=== PATIENT | female | born 1965 | race Caucasian/White ===

== ENCOUNTER → 2018-07-11 | Outpatient (CLI) | payer BC ==
--- NOTE | 2018-07-15 15:44 | MAM ---
EXAM DESCRIPTION: 3D Screening BILATERAL : Digital Mammography. CLINICAL HISTORY: 52 years Female ANNUAL SCREENING . No complaints. "Dense breasts." No personal or family history of breast cancer. Childbirth. Postmenopausal 17 years. Currently on HRT. Lifetime risk of developing breast cancer (Tyrer-Cuzick model)(%): 9.7. COMPARISON: Baseline study at this facility. TECHNIQUE: Bilateral CC and MLO projection full-field images, digital tomosynthesis mammographic technique. Bilateral digital 2-D full-field MLO images. CAD not available for tomosynthesis or 2-D images. FINDINGS: The breast parenchymal density pattern is: Heterogeneously dense breast tissue, which may obscure small masses. No skin thickening or nipple retraction. Bilateral axillary lymph nodes. Focal asymmetry versus architectural distortion in the middle third of the right breast at the 9:30 clock position, 8 cm from the nipple. Not associated with microcalcifications. This sector of the breast is asymmetrically denser than the contralateral left breast. No new focal, stellate mass or density, focal asymmetry , and no suspicious microcalcifications left breast. IMPRESSION: BI-RADS CATEGORY: 0 - INCOMPLETE- Need additional imaging evaluation. FOLLOW-UP: Recall for additional imagin-D spot compression images of the region of interest right breast CC projection. Orthogonal full-field LM tomosynthesis right breast. Targeted right breast ultrasound region of interest.. Written communication concerning the IMPRESSION and Follow-up, will be mailed to the patient and referring health care provider. Electronically signed by: Chris Harrington MD 07/15/2018 3:42 PM CDT
== END ==
LOC: MAMMO 09:42
PROVIDERS: ATTEND Family Medicine
DX: Z12.31 Encounter for screening mammogram for malignant neoplasm of breast (principal)

== ENCOUNTER → 2018-08-13 | Outpatient (CLI) | payer BC ==
--- NOTE | 2018-08-14 11:30 | MAM ---
EXAM DESCRIPTION: 3D Diagnostic, Right: Digital Mammography CLINICAL HISTORY: 53 yearsFemaleABN MAMMO focal asymmetry upper outer quadrant middle third right breast.. COMPARISON: Bilateral screening digital breast tomosynthesis 07/11/2018. TECHNIQUE: Right breast LM projection full-field images, digital mammographic tomosynthesis technique. Right breast digital spot compression of the region of interest in the CC and LM projections. CAD not utilized. FINDINGS: The breast parenchymal density pattern is: Heterogeneously dense breast tissue, which may obscure small masses. No skin thickening or nipple retraction focal asymmetry decreases in density with no mass density on tomosynthesis and spot compression images. No suspicious microcalcifications right breast. IMPRESSION: Probably benign findings. BI-RADS CATEGORY: 3 - PROBABLY BENIGN. MANAGEMENT: Short interval (6-month) diagnostic digital mammography right breast on or after December 2018. Optional targeted right breast ultrasound.. Written communication explaining the IMPRESSION and FOLLOW-UP will be mailed to the patient and referring care provider Electronically signed by: Chris Harrington MD 08/14/2018 11:28 AM CDT
== END ==
LOC: MAMMO 08:06
PROVIDERS: ATTEND Family Medicine
DX: R92.8 Other abnormal and inconclusive findings on diagnostic imaging of breast (principal)
CPT/HCPCS: 77065; G0279

== ENCOUNTER → 2018-10-17 | Outpatient (CLI) | payer BC | LOC: GMATM 17:32 | PROVIDERS: ATTEND Nurse Practitioner Family | DX: E53.9 Vitamin B deficiency, unspecified (principal) ==

== ENCOUNTER 2018-12-21 19:20 | Observation (INO) | payer BC ==
[2018-12-21] MEDS ORDERED: ONDANSETRON INJ 4 MG/2 ML VIAL IV ONE (19:45)
[2018-12-21] MEDS ORDERED: SODIUM CHLORIDE 0.9% 1000ML 1,000 ML IVS ONE (19:45)
[2018-12-21] MEDS ORDERED: MORPHINE SULFATE INJ 10 MG/ML VIAL IV ONE ×2 (19:45→21:35)
--- NOTE | 2018-12-21 20:33 | RAD ---
EXAM DESCRIPTION: Chest,1 View CLINICAL HISTORY: 53 years Female chest pain, shortness of breath COMPARISON: None. FINDINGS: The cardiomediastinal silhouette appears unremarkable. No consolidating infiltrates or pleural effusions. No pneumothorax. Cholecystectomy clips in the right upper quadrant. IMPRESSION: No acute abnormality is identified. Electronically signed by: Parth Smith MD 12/21/2018 8:31 PM CDT
--- NOTE | 2018-12-21 23:55 | HP ---
SUPERVISING PHYSICIAN: Jacobo Lara M.D. CHIEF COMPLAINT: Abdominal pain and nausea. HISTORY OF PRESENT ILLNESS: Ms. Rizvi is a 53 year-old female patient that initially came to the [facility] complaining of chest pains with a reported history of vomiting and diarrhea over the last several days and unable to tolerate any oral intake. She noted that she was having pain in the base of her neck, shoulders and arms associated with shortness of breath. She also noted that she was having some diffuse abdominal pain and nausea. She has been afebrile. She also has a history of coronary artery disease. Initial laboratory studies in the [facility] showed she had a white count of 10,500 with an early left shift. Chemistries showed a mild hyponatremia with sodium 129, BUN 9, creatinine 0.76. Liver functions were all within normal limits. Lipase normal at 32. She had 2 sets of troponins that were less than 0.02. Urinalysis did show positive nitrites with a small amount of leukocyte esterase, 10 to 20 WBCs and 4+ bacteria. CT of the abdomen without contrast showed suspected enteritis versus early chronic inflammatory bowel disease involving the jejunum and much of the ileum. There terminal ileum and colon were reported normal per radiology interpretation. The patient was started on some fluids and Rocephin for urinary tract infection. She is now going to be placed in observation for further treatment of likely viral enteritis with unable to maintain oral hydration and underlying urinary tract infection. She was admitted in stable condition. PAST MEDICAL HISTORY: 1. Seasonal allergies. 2. Hypertension. PAST SURGICAL HISTORY: 1. Cholecystectomy. 2. Appendectomy. 3. Total hysterectomy. HOME MEDICATIONS: 1. Xyzal 5 mg daily. 2. Spironolactone 25 mg daily. 3. Prinivil 10 mg daily. 4. Cetirizine 10 mg daily. 5. Azelastine nasal spray daily. ALLERGIES: NO KNOWN DRUG ALLERGIES. FAMILY HISTORY: Mother and father are both alive. Mother has a history of hypertension. Father has a history of gout, hypertension and diabetes. She has 1 sister who has hypertension. SOCIAL HISTORY: The patient lives in [place]. 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 She is . Rarely drinks alcohol and has never smoked tobacco. She denies using illicit drugs. REVIEW OF SYSTEMS: CONSTITUTIONAL: Positive for malaise and generalized weakness. No reported fevers. HEENT: Denies any headaches, ear aches, sore throat. Does have some slight nasal congestion from seasonal allergies. Denies any headaches or vision changes. RESPIRATORY: Positive for shortness of breath. Denies any coughing or wheezing. CARDIOVASCULAR: Denies any chest pains, palpitations or syncopal episodes. GASTROINTESTINAL: Positive for abdominal pains and some associated diarrhea, nausea and vomiting. GENITOURINARY: Denies any dysuria, hematuria or polyuria. MUSCULOSKELETAL: Generalized muscle pain with some neck pain but no meningeal signs. SKIN: Denies any lesions, rashes or moles or unexplained changes. NEUROLOGIC: Denies any headaches, numbness, tingling, seizures or ataxia. HEMATOLOGIC: Denies any easy bruising or unexplained bleeding or any transfusion reactions. PHYSICAL EXAMINATION: VITAL SIGNS: On admission to the . , shows temperature 97.9 with pulse 102, blood pressure initially showing to be hypertensive at 173/115, satting 99% on room air. Upon admission to the Medical/Surgical floor after pain management the patient was showing a blood pressure of 83/52, heart rate 70. Admission weight 70.6 kg. GENERAL: The patient appears to be in no acute distress. She does appear unwell generally but is alert. HEENT: Tympanic membranes are clear bilaterally. Oropharynx is pink with dry mucosal membranes. No lesions. NECK: Full range of motion with tenderness noted on the lateral extension. No meningeal signs. No jugular venous distention. CHEST: Lungs are clear to auscultation bilaterally without any notable rhonchi, wheezing or rales. There was some tenderness noted over the anterior chest wall with palpation. CARDIOVASCULAR: Heart was regular rate and rhythm without appreciable murmurs, gallops, or rubs. ABDOMEN: Soft with some generalized tenderness more so in the left and right upper quadrants. No rebound tenderness. No guarding. No point tenderness. No peritoneal signs. Bowel sounds were active. BACK: Without any CVA tenderness or vertebral tenderness. EXTREMITIES: No clubbing, cyanosis or edema. She moves all extremities ad marichuy. NEUROLOGIC: Cranial nerves II-XII are grossly intact. Facial features were symmetrical. Extraocular movements are within normal limits. There is no notable nystagmus. She was alert and oriented times three. LABORATORY: CBC showed a normal white count at 10,500, hemoglobin 13.1, hematocrit 38.8. Differential showed a slight left shift. Chemistries showed a low sodium at 129, potassium was normal at 3.6, anion gap normal at 15, carbon dioxide 22, BUN 9, creatinine 0.76. Blood sugar was 161, calcium 8.9. Liver functions were all within normal limits. She had 2 sets of troponins that were less than 0.02. Lipase was normal at 32. Urinalysis showed trace of blood with positive nitrites, small amount of leukocyte esterase, 0 RBCs, 10 to 20 WBCs with 4+ bacteria and 0 to 1 epithelials. Drug screen showed positive for opiates but the patient had received morphine in the [facility] prior to sample collection. MICROBIOLOGY: Blood cultures are pending. Urine culture is pending. EKG showed no evidence of ischemia with no ST or T wave changes and sinus rhythm. RADIOLOGY: Abdominal/pelvis CT per radiology interpretation showed suspected enteritis versus early chronic inflammatory bowel disease involving the jejunum and much of the ileum with the terminal ileum appearing normal and the colon appearing grossly normal with nonoral contrast. ASSESSMENT: 1. Acute abdominal pain with findings on CT suggestive of enteritis, likely viral of the jejunum and ileum. 2. Moderate dehydration secondary to #1 from nausea and vomiting and unable to have adequate oral intake. 3. Chest wall pain probably musculoskeletal with all EKGs and troponins being negative with the patient having multiple episodes of severe vomiting. 4. Electrolytes imbalance to include hyponatremia secondary to persistent nausea and vomiting. 5. Hypertension urgency on admission but now showing to be controlled after pain management. 6. Urinary tract infection with cultures pending. 7. Seasonal allergies. PLAN: Ms. Riziv is going to be placed in observation for initiation of parenteral hydration therapy as she is unable to hold adequate oral therapy in and is showing to be dehydrated. She will be given pain management with Toradol and qc manager her nausea with Zofran and Phenergan as needed. I started her on antibiotics to include Rocephin. Will await culture results to target antibiotic therapy as appropriate. I will make her NPO with the intention of starting on clear liquids in the morning and advance as she can tolerate. She will be on DVT prophylaxis per protocol with Lovenox. Anticipate her length of stay to be 1 to 2 days. As soon as she is able to tolerate oral intake, certainly can transition to outpatient management. Until we can transition back to outpatient management will continue to monitor and treat as needed. [facility][id number] [facility]
--- NOTE | 2018-12-21 23:56 | ED.PDOC ---
History of Present Illness - General Chief Complaint: Abdominal Pain Stated Complaint: abd pain, nausea Time Seen by Provider: 12/21/18 19:43 Information Source: patient, family Exam Limitations: no limitations - History of Present Illness Initial Comments: Patient presents to the ED complaining of chest pain. She reports recent history of vomiting and diarrhea which improved yesterday although she is unable to tolerate much PO today. She complains of pain at the base of her neck, shoulders and arms associated with shortness of breath. She continues to have diffuse abdominal pain and nausea. She has been afebrile. No diaphoresis. No known history of CAD. No other complaints at this time. Abdominal Pain Onset Location: generalized abdomen Pain Radiation: no radiation Quality: severe, aching, cramping Timing/Duration: days Improving Factors: nothing Worsening Factors: eating, movement Associated Symptoms: chest pain, diarrhea, fatigue, nausea/vomiting, shortness of breath Review of Systems - Review of Systems Constitutional: States: malaise, weakness EENTM: States: no symptoms reported Respiratory: States: short of breath. Denies: cough Cardiology: Denies: chest pain, palpitations Gastrointestinal/Abdominal: States: abdominal pain, diarrhea, nausea, vomiting Genitourinary: States: no symptoms reported Musculoskeletal: States: muscle pain, neck pain Skin: States: no symptoms reported. Denies: lesions, rash Neurological: Denies: headache, numbness, tingling Endocrine: States: no symptoms reported Hematologic/Lymphatic: States: no symptoms reported All other Systems: Reviewed and Negative Past Medical History (General) - Patient Medical History Hx Asthma: No Hx Cardiac Disorders: No Hx Hypertension: Yes Hx Diabetes: No Surgical History: appendectomy, cholecystectomy, Hysterectomy - Vaccination History Hx Tetanus, Diphtheria Vaccination: No Hx Influenza Vaccination: No Hx Pneumococcal Vaccination: No - Social History Hx Tobacco Use: No Hx Alcohol Use: Yes Family Medical History - Family History Mother Family History: Unknown Physical Exam - Physical Exam General Appearance: Anxious, Ill Appearing, Restless Eyes, Ears, Nose, Throat Exam: other - dry mucous membranes Neck: full range of motion, tender lateral Respiratory: lungs clear, normal breath sounds, no respiratory distress, other - tenderness to palpation over the anterior chest Cardiovascular/Chest: normal peripheral pulses, regular rate, rhythm, no murmur Peripheral Pulses: No deficit Gastrointestinal/Abdominal: normal bowel sounds, tenderness - generalized Back Exam: no CVA tenderness Extremity: normal range of motion, non-tender, normal inspection, slow capillary refill Neurologic: seam checker II-XII nml as tested, no motor/sensory deficits, alert, oriented x 3 Skin Exam: normal color Progress - Progress Progress: 12/22/18 00:02 Discussed with HARNESS MAKER who accepts for observation admit. MDM: Patient presents to the ED complaining of chest pain, nausea/vomiting, abdominal pain. Workup as below. The EKG does not show acute ischemia and troponin is negative x 2. Labs as above. Abdominal exam shows diffuse tenderness without focal findings concerning for acute abdomen. She does not have clinical signs of obstruction. She is s/p hysterectomy, appendectomy and cholecystectomy. She is dehydrated and unable to tolerate PO secondary to pain and nausea. Will place in observation for symptom control, continued hydration. 12/22/18 00:08 - Results/Orders Results/Orders: Laboratory Results - last 24 hr 12/21/18 12/21/18 12/21/18 19:45 19:45 20:00 WBC 10.5 RBC 4.62 Hgb 13.5 Hct 38.8 MCV 84.0 MCH 29.2 MCHC 34.8 RDW 12.8 Plt Count 264 MPV 8.5 Absolute Neuts (auto) 8.70 H Absolute Lymphs (auto) 1.00 Absolute Monos (auto) 0.70 Absolute Eos (auto) 0.00 Absolute Basos (auto) 0.00 Neutrophils % 83.1 H Lymphocytes % 9.7 L Monocytes % 6.8 Eosinophils % 0.2 L Basophils % 0.2 Sodium 129 L Potassium 3.6 Chloride 95 L Carbon Dioxide 22 Anion Gap 15.6 BUN 9 Creatinine 0.76 BUN/Creatinine Ratio 11.8 Random Glucose 161 H Serum Osmolality 261.1 L Calcium 8.9 Total Bilirubin 0.5 AST 32 ALT 42 Alkaline Phosphatase 70 Troponin I < 0.02 Serum Total Protein 7.7 Albumin 4.0 Globulin 3.7 H Albumin/Globulin Ratio 1.1 Lipase 32 12/21/18 22:22 WBC RBC Hgb Hct MCV MCH MCHC RDW Plt Count MPV Absolute Neuts (auto) Absolute Lymphs (auto) Absolute Monos (auto) Absolute Eos (auto) Absolute Basos (auto) Neutrophils % Lymphocytes % Monocytes % Eosinophils % Basophils % Sodium Potassium Chloride Carbon Dioxide Anion Gap BUN Creatinine BUN/Creatinine Ratio Random Glucose Serum Osmolality Calcium Total Bilirubin AST ALT Alkaline Phosphatase Troponin I < 0.02 Serum Total Protein Albumin Globulin Albumin/Globulin Ratio Lipase - EKG/XRAY/CT Comments: 2138 normal sinus rhythm rate 90 normal axis, normal interval no stemi XRAY: chest - no acute disease, no free air Departure - Departure Clinical Impression: Dehydration, Nausea and vomiting Chest pain Qualifiers: Chest pain type: unspecified Qualified Code(s): R07.9 - Chest pain, unspecified Time of Disposition: 00:05 Disposition: Admit Patient Condition: Fair Home Medications: Ambulatory Orders Azelastine HCl [Azelastine Hydrochloride] 1 spray VIRGIE DAILY 12/21/18 Cetirizine HCl [Zyrtec Allergy] 10 mg PO DAILY 12/21/18 Lisinopril [Prinivil] 10 mg PO DAILY 12/21/18 Spironolactone 25 mg PO DAILY 12/21/18
[2018-12-22] MEDS ORDERED: ACETAMINOPHEN SUPPOSITORY 650 MG PR PRN (00:37)
[2018-12-22] MEDS ORDERED: ONDANSETRON INJ 4 MG/2 ML VIAL IV PRN (00:37)
[2018-12-22] MEDS ORDERED: tiZANidine 4 MG TAB PO ONE (00:40)
[2018-12-22] MEDS ORDERED: PANTOPRAZOLE SODIUM IV 40 MG VIAL IV ONE (00:40)
[2018-12-22] MEDS ORDERED: KETOROLAC TROMETHAMINE INJ 30 MG/ML VIAL IV ONE (00:41)
[2018-12-22] MEDS: KCL 20MEQ/D5NS 1,000 ML IVS PRN ×3 (00:58→16:23)
[2018-12-22] MEDS ORDERED: IV SET AND CAP CHANGE INJ INJ SCH (01:00)
[2018-12-22] MEDS: SODIUM CHLORIDE 0.9% (FLUSH) 10 ML SYG IV PRN ×2 (01:03→21:00)
[2018-12-22] MEDS ORDERED: SODIUM CHL 0.9% 50ML MIN-BAG+ 50 ML IVPB ONE ×2 (02:29→20:05)
[2018-12-22] MEDS ORDERED: cefTRIAXone SODIUM 1 GM VIAL ONE ×2 (02:30→20:05)
[2018-12-22] MEDS: cefTRIAXone SODIUM 1 GM in SODIUM CHL 0.9% 50ML MIN-BAG+ 50 ML IVPB SCH (02:31)
--- NOTE | 2018-12-22 02:54 | CT ---
EXAMINATION: POSTCONTRAST ABDOMEN AND PELVIC CT EXAMINATION. REFERRAL DIAGNOSIS: Diffuse abdominal pain. COMPARISONS: No comparison abdomen and pelvic CT examinations are currently available. PROCEDURE: Using low-dose helical technique, thin section axial images were performed through the abdomen and pelvis after the uncomplicated intravenous administration of nonionic iodinated contrast material. No comparisons are available. FINDINGS: Multiple loops of fluid filled nondistended small bowel without inflammatory wall thickening or adjacent abscess. No mechanical bowel obstruction or extraluminal bowel gas. The colon appears normal. No evidence of appendicitis or diverticulitis. Scattered mesenteric noncalcified lymph nodes measuring up to 11 mm in greatest diameter. Remote cholecystectomy. The liver, spleen, pancreas, adrenal glands, kidneys, renal collecting systems, ureters and fluid-filled gallbladder appear normal. 1.8 cm noncalcified hypodense left uterine mass lesion with multiple satellite 5 mm hypodense nodule. Transvaginal pelvic ultrasound versus pelvic MRI should be performed for further evaluation. Moderate to severe atherosclerotic calcification in the abdominal aorta without aneurysm or dissection. Greatest AP diameter of the infrarenal abdominal aorta measures 1.8 cm. No imaging follow-up recommended. Left basilar scar versus atelectasis. IMPRESSION: 1. Suspect enteritis versus early chronic inflammatory bowel disease involving the jejunum and much of the ileum. The terminal ileum appears normal. 2. The colon appears grossly normal on this nonoral contrast examination. 3. No appendicitis or diverticulitis. 4. 2 noncalcified left hypodense uterine lesions measuring 18 mm 5 mm in greatest transverse dimension. Transvaginal pelvic ultrasound versus pelvic MRI would prove useful to differentiate myometrial from endometrial lesions. 5. Atherosclerotic calcification in the abdominal aorta without aneurysm or dissection. No imaging follow-up recommended. This exam was performed according to our departmental dose-optimization program, which includes automated exposure control, adjustment of the mA and/or kV according to patient size and/or use of iterative reconstruction technique. For management of fusiform aneurysmal abdominal aortas: <2.6 cm aorta, no follow-up is recommended. 2.6-2.9 cm aorta, recommend follow-up every 5 years for aortas meeting the criteria for AAA (>1.5 x proximal normal segment; no f/u if < 1.5 x proximal normal segment; no f/u for aortas < 2.6 cm). 3.0-3.4 cm AAA, recommend follow-up every 3 years. 3.5-3.9 cm AAA, recommend follow-up every 2 years. 4.0-4.4 cm AAA, recommend follow-up every 12 months and recommend vascular consultation. 4.5-5.4 cm AAA, recommend follow-up every 6 months and recommend vascular consultation. >5.5 cm AAA, recommend referral to vascular specialist. For management of saccular abdominal aortic aneurysms of any size, recommend vascular consultation. Note: for AAA enlargement of >0.5 cm in 6 months or >1 cm in 1 year, recommend vascular consultation. References: J Am Freddy Radiol 2013; 10(10):789-794; J Vasc Surg. 2018; 67:2-77 Electronically signed by: Talat Marsh MD 12/22/2018 2:52 AM CDT
[2018-12-22] MEDS: AZELASTINE BNAS SCH (09:21)
[2018-12-22] MEDS: LISINOPRIL 10 MG TAB PO SCH (09:22)
[2018-12-22] MEDS ORDERED: KETOROLAC TROMETHAMINE INJ 60 MG/2 ML VIAL IM ONE (11:15)
[2018-12-22] MEDS ORDERED: KETOROLAC TROMETHAMINE INJ 60 MG/2 ML VIAL IM PRN (17:50)
[2018-12-23] MEDS: cefTRIAXone SODIUM 1 GM in SODIUM CHL 0.9% 50ML MIN-BAG+ 50 ML IVPB SCH (01:33)
[2018-12-23] MEDS: ACETAMINOPHEN 325 MG TAB PO PRN ×2 (01:43→10:46)
[2018-12-23 04:17] VITALS: O2SAT 97
[2018-12-23] MEDS: LISINOPRIL 10 MG TAB PO SCH (08:58)
[2018-12-23] MEDS: AZELASTINE BNAS SCH (08:58)
[2018-12-23] MEDS ORDERED: ENOXAPARIN SODIUM 40 MG/0.4 ML SYG SUBCU SCH (09:00)
[2018-12-23] MEDS ORDERED: INFLUENZA VIRUS VACC (ADULT) 0.5 ML SYG IM ONE (11:35)
[2018-12-23 12:04] VITALS: BP 133/72; TEMP 97.9
--- NOTE | 2018-12-23 13:31 | DS ---
SUPERVISING PHYSICIAN: Zeb Marshall MD ADMISSION DIAGNOSIS: 1. Acute abdominal pain with findings on CT suggestive of enteritis, likely viral. 2. Moderate dehydration secondary to #1 along with nausea and vomiting. 3. Chest wall pain with negative EKGs and troponins, likely secondary to multiple episodes of severe vomiting. 4. Electrolyte imbalance secondary to include enteritis. 5. Hypertensive urgency. 6. Urinary tract infection. 7. Seasonal allergies. DISCHARGE DIAGNOSIS: 1. Enteritis with abdominal improved, improved. 2. Dehydration, improved. 3. Chest wall pain, resolved. 4. Electrolyte imbalance, improved. 5. Hypertensive urgency, resolved. 6. Urinary tract infection with cultures pending. 7. Seasonal allergies. HISTORY OF PRESENT ILLNESS: This is a 53-year-old female patient who came to the Emergency Room complaining of chest pain along with nausea, vomiting and diarrhea for the past several days. The pain was at the base of her neck, shoulders and arms associated with shortness of breath. She was having diffuse abdominal pain along with nausea. She does have a history of coronary artery disease. Initial laboratory studies in the ER showed she had a white count. Chemistries with a low sodium at 129. She had EKG and troponins which did not show any indications that she was having an acute coronary event. She did have urinalysis also which showed 10 to 20 WBCs as well as 4+ bacteria. CT of the abdomen and pelvis contrast showed suspected enteritis versus early chronic inflammatory bowel disease. She was placed on Rocephin and given IV fluids. Throughout her stay here, her symptoms improved. The chest wall pain resolved. Labs improved as well. She was pretty much asymptomatic on Sunday morning. We did actually get a stool sample, though. She had not had any diarrhea since Sunday, she states, but we still got a stool sample which showed C. difficile antigen, but not the toxin. Therefore, in addition to outpatient antibiotics for her urinary tract infection, I have ordered Flagyl 500 mg every 8 hours for 10 days. She will followup with her primary care physician, Dr. Alberts, in 7 days. She has been instructed to return to the Emergency Room with any worsening. Diet is as tolerated. #[id number] [facility]
== END 2018-12-23 13:30 | disposition home or self-care (01) ==
LOC: ER 19:20 → MS 23:54
PROVIDERS: ADMIT Nurse Practitioner Family; ATTEND Nurse Practitioner
DX: K52.9 Noninfective gastroenteritis and colitis, unspecified (principal); E86.0 Dehydration; R07.89 Other chest pain; E87.8 Other disorders of electrolyte and fluid balance, not elsewhere classified; I16.0 Hypertensive urgency; I10 Essential (primary) hypertension; N39.0 Urinary tract infection, site not specified; J30.2 Other seasonal allergic rhinitis; E87.1 Hypo-osmolality and hyponatremia; I25.10 Atherosclerotic heart disease of native coronary artery without angina pectoris; N85.9 Noninflammatory disorder of uterus, unspecified; I70.0 Atherosclerosis of aorta; Z79.899 Other long term (current) drug therapy; Z90.49 Acquired absence of other specified parts of digestive tract; Z90.710 Acquired absence of both cervix and uterus; Z82.49 Family history of ischemic heart disease and other diseases of the circulatory system; Z83.3 Family history of diabetes mellitus
CPT/HCPCS: 96366; 96367; 96365; 96375 ×2; 96376 ×2; 96372 ×2; J0696 ×2; 90674; J1885 ×2; J2270 ×2; J2405; J7030; J1650; J7050 ×2; 80048; 82270 ×2; 80053; 87086; 80307; 36415; 87077; 87186; 81001; 85025 ×2; 87040 ×2; 87045; 87046; 83690; 84484 ×2; 87324; 83630; 71045; 74177; 99285; 93005; G0378; 87449; 87493